=== PATIENT | female | born 2005 | race Caucasian/White ===

== ENCOUNTER 2023-03-15 08:49 | Emergency (ER) | payer OTHER, SELFPAY ==
[2023-03-15 08:50] VITALS: BP 114/69; PULSE 116; RESP 18; TEMP 37.9; O2SAT 98; BMI 25.8
--- NOTE | 2023-03-15 09:15 | HMH.EDGENADL ---
Discharge Plan Disposition Patient Disposition: Home, Self-Care Prescriptions Prescriptions: New prednisone 20 mg tablet 40 mg PO BID 5 Days Qty: 20 0RF ondansetron 4 mg tablet,disintegrating 4 mg PO Q6H PRN (Reason: nausea and vomiting) Qty: 10 0RF Referrals Follow up/Referrals: Provider,Referral, [Primary Care Provider] - See instructions Activity Restrictions/Add. Instructions Additional Instructions/Restrictions: Call your family doctor to establish care for this visit to the emergency department and schedule follow-up within 48 hours to ensure improvement. If you have any worsening of your condition or any other concerning signs or symptoms, return to the emergency department or your primary care doctor for further evaluation. Take medications as prescribed. Take Tylenol 1000 mg every 6 hours (4 times daily) and ibuprofen 400 mg every 6 hours (4 times daily) as needed with food and water to prevent GI upset and kidney damage. Quarantine 5 days from symptom onset. Clinical Impressions Clinical Impression: COVID-19 Discharge ED Provider: Raphael Wisdom General Adult HPI General Chief complaint: Headache Stated complaint: congestion, dizzyness, fever Time Seen by Provider: 03/15/23 08:50 History of Present Illness HPI narrative: Is a 18-year-old female with no relevant medical history presenting with multiple complaints. Patient states that was diagnosed with flu and COVID a few days prior to arrival. Patient started having body aches, fevers, nausea without vomiting 1 day prior to arrival. He has continued to have congestion, cough productive of green sputum today. Denies vomiting, difficulty breathing, chest pain, shortness of breath, or any other concerns. Has not taken any medications to make her symptoms better Related Data Previous Rx's Medication Instructions Recorded ondansetron 4 mg disintegrating 4 mg PO Q6H PRN nausea and 03/15/23 tablet vomiting #10 tabs prednisone 20 mg tablet 40 mg PO BID 5 days #20 tabs 03/15/23 Allergies Allergy/AdvReac Type Severity Reaction Status Date / Time No Known Allergies Allergy Verified 03/15/23 09:28 [facility] Disclaimer: The information contained in this section may have been updated after the patient was seen, as this information can be updated by other users. Social History Smoking Status: Current every day smoker alcohol intake: never current occupational status: unemployed Travel in the last 8 weeks: None ROS Obtained: Yes All systems reviewed & no additional complaints except as documented Physical Exam General General appearance: alert, in no apparent distress and other ( ) Head Head exam: atraumatic and normocephalic Eye Eye exam: Present normal appearance, PERRL and EOMI ENT ENT exam: Present mucous membranes moist Neck Neck exam: Present normal inspection, full ROM and trachea midline Respiratory Respiratory exam: Present normal lung sounds bilaterally and wheezes (Left upper lobe); Absent respiratory distress, stridor, accessory muscle use or prolonged expiratory phase Cardiovascular Cardiovascular exam: Present regular rate and normal rhythm Abdominal Exam Abdominal exam: Present soft; Absent distention, tenderness, guarding, rebound, rigidity or normal bowel sounds Extremities Exam Extremities exam: Absent edema Neurological Exam Neurological exam: Present alert, oriented X3, CN II-XII intact and normal gait; Absent motor sensory deficit Skin Skin exam: Present warm and dry; Absent diaphoresis or erythema Medical Decision Making Medical Records Medical records reviewed: Yes I reviewed the patient's medical records. Stephen Inquiry Pt receiving controlled substance: No Stephen was queried for this patient: No Vital Signs: 03/15/23 08:50 Temperature 100.2 F H Temperature Source Oral Pulse Rate [Left Radial] 116 H Respiratory Rate 18 Blood Pressure [Left Arm] 114/69 Blood Pressure Mean
[2023-03-15 09:20] LABS: Influenza A, PCR Not Detected (NotDetected); Influenza B, PCR Not Detected (NotDetected)
--- NOTE | 2023-03-15 09:50 | PC.NURSE ---
pt reports improvement in nausea
--- NOTE | 2023-03-15 09:51 | XR_ITS ---
FINAL REPORT CLINICAL HISTORY: [place] wheezing, productive cough COMPARISON: None FINDINGS: The heart size is normal. The mediastinum is normal. There is no focal infiltrate or edema. There are no pleural effusions. There is no pneumothorax. There is no osseous abnormality. IMPRESSION: No acute cardiopulmonary process Reviewed, Interpreted and Dictated by Brian Del Rosario MD Transcribed by Kellie Collazo Authenticated and . [facility]
[2023-03-15 10:05] LABS: Coronavirus 19, PCR Detected (NotDetected)
[2023-03-15 10:59] VITALS: BP 114/69; PULSE 100; RESP 18; TEMP 37.9; O2SAT 98
== END 2023-03-15 10:59 | disposition home or self-care (01) ==
PROVIDERS: Emergency Provider Emergency Medicine
DX: U07.1 COVID-19 (principal); R51.9 Headache, unspecified; R50.9 Fever, unspecified; F17.200 Nicotine dependence, unspecified, uncomplicated
CPT/HCPCS: 71045; 87636; 99283; 99284